=== PATIENT | male | born 1955 | race Caucasian/White ===

== ENCOUNTER 2018-01-05 07:32 | Day surgery (SDC) | payer OTHER ==
[~2018-01-05] VITALS: Ht 172.7 cm; Wt 87.0 kg
[~2018-01-05 07:32] MED LIST: ALBU8.5H8 INH; BISA5TAB5 PO; CYAN500L4 PO; DOLU50TA PO; ESCI10TA PO; ESZO2TAB22 PO; FAMC500T33 PO; GEMF600T3 PO; MULT-108 PO; OXYC10TA6 PO; PREG150C PO; PSYLLIUM PO; RILP25TA PO; SODIUM CHLORIDE NAS; TAMS-11 PO; VENL75TA PO
[2018-01-05] MEDS ORDERED: LACTATED RINGERS 1,000 ML IV SCH (08:02)
[2018-01-05 08:03] VITALS: BP 134/77
[2018-01-05] MEDS ORDERED: MIDAZOLAM 1 MG/ML, 2ML ONE (10:38)
[2018-01-05] MEDS ORDERED: FENTANYL PF 100 MCG/2ML ONE ×2 (10:38→12:29)
[2018-01-05] MEDS ORDERED: KETAMINE 10 MG/ML, 20ML ONE (10:54)
[2018-01-05] MEDS ORDERED: OXYcodone 5 MG/5 ML ORAL.SOL UDC PO PRN (11:00)
[2018-01-05] MEDS ORDERED: FENTANYL PF 100 MCG/2ML IV PRN (11:00)
[2018-01-05] MEDS ORDERED: HYDROcodone/APAP 7.5-325MG/15ML UDC PO PRN (11:00)
[2018-01-05] MEDS ORDERED: LABETALOL 5MG/ML, 20ML IV PRN (11:00)
[2018-01-05] MEDS ORDERED: ONDANSETRON 2MG/ML, 2ML IVPush PRN (11:00)
[2018-01-05] MEDS ORDERED: ACETAMINOPHEN 325 MG TABLET PO PRN (11:00)
[2018-01-05] MEDS ORDERED: PROMETHAZINE 25 MG/ML, 1ML IV PRN (11:00)
[2018-01-05] MEDS ORDERED: ACETAMINOPHEN 650 MG/20.3 ML UDC ONE (12:29)
[2018-01-05] MEDS ORDERED: OXYcodone 5 MG/5 ML ORAL.SOL UDC ONE (12:30)
[2018-01-05] MEDS ORDERED: PROPOFOL 10 MG/ML, 20ML ONE ×6 (13:27)
== END 2018-01-05 13:25 | disposition home or self-care (01) ==
LOC: OUT 07:32
PROVIDERS: ATTEND Internal Medicine Geriatric Medicine
DX: K85.90 Acute pancreatitis without necrosis or infection, unspecified (principal); K86.89 Other specified diseases of pancreas; F41.9 Anxiety disorder, unspecified; K21.9 Gastro-esophageal reflux disease without esophagitis; E78.5 Hyperlipidemia, unspecified; Z87.39 Personal history of other diseases of the musculoskeletal system and connective tissue; Z98.890 Other specified postprocedural states; Z88.1 Allergy status to other antibiotic agents; Z88.0 Allergy status to penicillin
CPT/HCPCS: 43242; 88172; 88173; 88177; 88305; 88307; J2250; J2704; J3010; J7120; 93005

== ENCOUNTER 2018-02-02 11:42 | Day surgery (SDC) | payer OTHER ==
[~2018-02-02] VITALS: Ht 172.7 cm; Wt 84.1 kg
[2018-02-02] MEDS ORDERED: LACTATED RINGERS 1,000 ML IV SCH (12:17)
[2018-02-02 12:43] VITALS: BP 115/77
[2018-02-02] MEDS ORDERED: FENTANYL PF 100 MCG/2ML ONE (14:22)
[2018-02-02] MEDS ORDERED: MIDAZOLAM 1 MG/ML, 2ML ONE (14:23)
[2018-02-02] MEDS ORDERED: DEXAMETHASONE 4 MG/ML, 1ML ONE (14:32)
[2018-02-02] MEDS ORDERED: ROCURONIUM 10 MG/ML,10ML ONE (14:32)
[2018-02-02] MEDS ORDERED: ONDANSETRON 2MG/ML, 2ML ONE (14:32)
[2018-02-02] MEDS ORDERED: PROPOFOL 10 MG/ML, 20ML ONE (14:32)
[2018-02-02] MEDS ORDERED: ALBUTEROL SULFATE 2.5 MG/3 ML NPPB PRN (15:00)
[2018-02-02] MEDS ORDERED: LABETALOL 5MG/ML, 20ML IV PRN (15:00)
[2018-02-02] MEDS ORDERED: FENTANYL PF 100 MCG/2ML IV PRN (15:00)
[2018-02-02] MEDS ORDERED: hydrALAzine 20 MG/ML, 1ML IV PRN (15:00)
[2018-02-02] MEDS ORDERED: ACETAMINOPHEN 325 MG TABLET PO PRN (15:00)
[2018-02-02] MEDS ORDERED: ONDANSETRON ODT 8 MG PO PRN (15:00)
[2018-02-02] MEDS ORDERED: PROMETHAZINE 25 MG/ML, 1ML IV PRN (15:00)
[2018-02-02] MEDS ORDERED: MORPHINE SULFATE 4 MG/ML, 1ML IVPush PRN (15:00)
== END 2018-02-02 16:55 ==
LOC: OUT 11:42
PROVIDERS: ATTEND Internal Medicine
DX: R59.1 Generalized enlarged lymph nodes (principal); D71 Functional disorders of polymorphonuclear neutrophils; K85.90 Acute pancreatitis without necrosis or infection, unspecified
CPT/HCPCS: 43242; 88172; 88173; 88177; 88305; 88307; J1100; J2250; J2405; J2704; J3010; J7120

== ENCOUNTER 2018-02-02 23:26 | Inpatient (IN) | payer OTHER ==
[~2018-02-02] VITALS: Ht 172.7 cm; Wt 76.8 kg
[2018-02-02] MEDS: POTASSIUM CHLORIDE 20 MEQ in LACTATED RINGERS 1,000 ML IV SCH (23:57)
[2018-02-03] MEDS ORDERED: morphine SULFATE 10 MG/ML, 1ML IVPush PRN
[2018-02-03] MEDS ORDERED: POLYETHYLENE GLYCOL 17 GM PACKET PO PRN
[2018-02-03] MEDS ORDERED: MORPHINE SULFATE 4 MG/ML, 1ML IVPush PRN
[2018-02-03] MEDS ORDERED: DIPHENHYDRAMINE 50 MG/ML, 1ML IVPush PRN
[2018-02-03] MEDS ORDERED: BISACODYL 10 MG SUPP PR PRN
[2018-02-03] MEDS ORDERED: SODIUM CHLORIDE FLUSH 10ML SYR IVF ONE
[2018-02-03] MEDS ORDERED: DOCUSATE 100 MG CAPSULE PO PRN
[2018-02-03] MEDS ORDERED: hydrALAzine 20 MG/ML, 1ML IVPush PRN
[2018-02-03] MEDS ORDERED: POTASSIUM CHLORIDE 20 MEQ in SODIUM CHLORIDE 0.45% 1,000 ML IV SCH
[2018-02-03] MEDS ORDERED: MORPHINE SULFATE 4 MG/ML, 1ML ONE (00:53)
[2018-02-03 01:20] VITALS: BP 132/83
[2018-02-03] MEDS ORDERED: HYDROmorphone 2 MG/ML, 1ML ONE ×7 (01:42→21:29)
[2018-02-03] MEDS: HYDROmorphone 1 MG/ML, 1ML IV PRN ×7 (01:45→21:31)
[2018-02-03 02:02] VITALS: BP 130/83
[2018-02-03 05:10] LABS: MEAN CORPUSCULAR HGB CONC 32.6 g/dL (33.2-36.2); MEAN CORPUSCULAR VOLUME 88.9 fL (81-97); MEAN PLATELET VOLUME 7.9 fL (7.4-10.4); PLATELET COUNT 354 x10^3/uL (130-400); RED BLOOD COUNT 4.22 x10^6/uL (4.38-5.82); RED CELL DISTRIBUTION WIDTH 16.3 % (9.4-14.8)
[2018-02-03 05:20] LABS: ALBUMIN 3.3 g/dL (3.4-5.0); ANION GAP 5 mmol/L (5-15); CALCIUM 8.9 mg/dL (8.5-10.1); CHLORIDE 108 mmol/L (98-107)
[2018-02-03 05:24] LABS: ALANINE AMINOTRANSFERASE 54 U/L (12-78); ALKALINE PHOSPHATASE 112 U/L (45-117); BILIRUBIN,TOTAL 0.5 mg/dL (0.2-1.0); CREATININE 1.25 mg/dL (0.7-1.3); TOTAL PROTEIN 7.6 g/dL (6.4-8.2)
[2018-02-03 05:51] LABS: BASOPHILS # (AUTO) 0.18 x10^3/uL (0-0.1); BASOPHILS % (AUTO) 1 % (0-1); EOSINOPHILS % (AUTO) 0 % (1-7); LYMPHOCYTES # (AUTO) 1.56 x10^3/uL (1-3.4); LYMPHOCYTES % (AUTO) 11 % (22-44); MD SCAN; MONOCYTES # (AUTO) 0.27 x10^3/uL (0.2-0.8); MONOCYTES % (AUTO) 2 % (2-9); NEUTROPHILS # (AUTO) 12.15 x10^3/uL (1.8-6.8); NEUTROPHILS % (AUTO) 86 % (42-75)
[2018-02-03] MEDS: POTASSIUM CHLORIDE 20 MEQ in LACTATED RINGERS 1,000 ML IV SCH (06:34)
[2018-02-03 07:20] VITALS: BP 131/84
[2018-02-03] MEDS: LACTATED RINGERS 1,000 ML IV SCH ×3 (11:36→21:35)
[2018-02-03] MEDS ORDERED: LORazepam 2 MG/ML, 1ML IVPush ONE (12:00)
[2018-02-03 13:46] VITALS: BP 119/78
[2018-02-03 20:19] VITALS: BP 106/66
[2018-02-04] MEDS ORDERED: HYDROmorphone 2 MG/ML, 1ML ONE ×5 (00:22→22:28)
[2018-02-04] MEDS: HYDROmorphone 1 MG/ML, 1ML IV PRN ×5 (00:23→22:30)
[2018-02-04 02:16] VITALS: BP 115/72
[2018-02-04] MEDS: LACTATED RINGERS 1,000 ML IV SCH ×3 (02:33→22:31)
[2018-02-04 04:43] LABS: BASOPHILS # (AUTO) 0.03 x10^3/uL (0-0.1); BASOPHILS % (AUTO) 0 % (0-1); EOSINOPHILS # (AUTO) 0.09 x10^3/uL (0-0.4); EOSINOPHILS % (AUTO) 1 % (1-7); LYMPHOCYTES % (AUTO) 17 % (22-44); MD NO; MEAN CORPUSCULAR HEMOGLOBIN 29.3 pg (27.5-34.5); MEAN CORPUSCULAR HGB CONC 32.9 g/dL (33.2-36.2); MEAN CORPUSCULAR VOLUME 89.1 fL (81-97); MONOCYTES # (AUTO) 0.68 x10^3/uL (0.2-0.8); MONOCYTES % (AUTO) 5 % (2-9); NEUTROPHILS # (AUTO) 10.26 x10^3/uL (1.8-6.8); NEUTROPHILS % (AUTO) 77 % (42-75); PLATELET COUNT 309 x10^3/uL (130-400); RED BLOOD COUNT 4.14 x10^6/uL (4.38-5.82); RED CELL DISTRIBUTION WIDTH 16.7 % (9.4-14.8)
[2018-02-04 04:47] LABS: ANION GAP 5 mmol/L (5-15); CHLORIDE 108 mmol/L (98-107)
[2018-02-04 04:48] LABS: CREATININE 1.05 mg/dL (0.7-1.3)
[2018-02-04 08:12] VITALS: BP 121/76
[2018-02-04] MEDS: ONDANSETRON 2MG/ML, 2ML IVPush PRN (18:02)
[2018-02-04 20:19] VITALS: BP 150/80
[2018-02-04] MEDS ORDERED: TEMAZEPAM 15 MG CAPSULE PO PRN (21:00)
[2018-02-05 01:22] VITALS: BP 151/79
[2018-02-05] MEDS: LACTATED RINGERS 1,000 ML IV SCH ×5 (03:14→23:25)
[2018-02-05] MEDS ORDERED: HYDROmorphone 2 MG/ML, 1ML ONE ×5 (03:16→19:56)
[2018-02-05] MEDS: HYDROmorphone 1 MG/ML, 1ML IV PRN ×5 (03:17→20:02)
[2018-02-05 07:20] VITALS: BP 121/71
[2018-02-05] MEDS ORDERED: CITALOPRAM 10 MG TABLET PO SCH (09:00)
[2018-02-05] MEDS: CITALOPRAM 20 MG TABLET PO SCH (10:02)
[2018-02-05] MEDS: VENLAFAXINE 75 MG CAP ER PO SCH (10:02)
[2018-02-05 10:03] LABS: BASOPHILS # (AUTO) 0.04 x10^3/uL (0-0.1); BASOPHILS % (AUTO) 0 % (0-1); EOSINOPHILS # (AUTO) 0.19 x10^3/uL (0-0.4); EOSINOPHILS % (AUTO) 2 % (1-7); LYMPHOCYTES # (AUTO) 1.96 x10^3/uL (1-3.4); LYMPHOCYTES % (AUTO) 16 % (22-44); MD NO; MEAN PLATELET VOLUME 7.8 fL (7.4-10.4); MONOCYTES # (AUTO) 0.92 x10^3/uL (0.2-0.8); MONOCYTES % (AUTO) 8 % (2-9); NEUTROPHILS # (AUTO) 9.07 x10^3/uL (1.8-6.8); NEUTROPHILS % (AUTO) 75 % (42-75); PLATELET COUNT 275 x10^3/uL (130-400); RED BLOOD COUNT 4.18 x10^6/uL (4.38-5.82); RED CELL DISTRIBUTION WIDTH 16.4 % (9.4-14.8)
[2018-02-05 10:16] LABS: ALANINE AMINOTRANSFERASE 38 U/L (12-78); ANION GAP 6 mmol/L (5-15); CALCIUM 8.8 mg/dL (8.5-10.1); CHLORIDE 106 mmol/L (98-107); CREATININE 1.05 mg/dL (0.7-1.3)
[2018-02-05 10:18] LABS: ALKALINE PHOSPHATASE 99 U/L (45-117); TOTAL PROTEIN 7.1 g/dL (6.4-8.2)
[2018-02-05 13:19] VITALS: BP 128/73
[2018-02-05] MEDS ORDERED: OXYcodone/APAP 5/325MG TABLET PO PRN (13:30)
[2018-02-05 19:23] VITALS: BP 131/82
[2018-02-05] MEDS: ONDANSETRON 2MG/ML, 2ML IVPush PRN (19:59)
[2018-02-06 02:08] VITALS: BP 115/71
[2018-02-06] MEDS: LACTATED RINGERS 1,000 ML IV SCH ×2 (04:33→09:37)
[2018-02-06 05:42] LABS: CHLORIDE 109 mmol/L (98-107)
[2018-02-06 05:48] LABS: BASOPHILS # (AUTO) 0.03 x10^3/uL (0-0.1); BASOPHILS % (AUTO) 0 % (0-1); EOSINOPHILS # (AUTO) 0.22 x10^3/uL (0-0.4); EOSINOPHILS % (AUTO) 2 % (1-7); LYMPHOCYTES # (AUTO) 1.62 x10^3/uL (1-3.4); LYMPHOCYTES % (AUTO) 17 % (22-44); MD NO; MEAN CORPUSCULAR HEMOGLOBIN 29.3 pg (27.5-34.5); MEAN CORPUSCULAR HGB CONC 33.3 g/dL (33.2-36.2); MEAN CORPUSCULAR VOLUME 87.9 fL (81-97); MONOCYTES # (AUTO) 0.74 x10^3/uL (0.2-0.8); MONOCYTES % (AUTO) 8 % (2-9); NEUTROPHILS # (AUTO) 6.92 x10^3/uL (1.8-6.8); NEUTROPHILS % (AUTO) 73 % (42-75); PLATELET COUNT 216 x10^3/uL (130-400); RED BLOOD COUNT 3.52 x10^6/uL (4.38-5.82); RED CELL DISTRIBUTION WIDTH 16.4 % (9.4-14.8)
[2018-02-06 05:50] LABS: ALANINE AMINOTRANSFERASE 27 U/L (12-78); ALBUMIN 2.5 g/dL (3.4-5.0); ALKALINE PHOSPHATASE 92 U/L (45-117); ANION GAP 8 mmol/L (5-15); CALCIUM 8.6 mg/dL (8.5-10.1); CREATININE 0.96 mg/dL (0.7-1.3); TOTAL PROTEIN 6.1 g/dL (6.4-8.2)
[2018-02-06 09:35] VITALS: BP 130/80
[2018-02-06] MEDS: VENLAFAXINE 75 MG CAP ER PO SCH (09:37)
[2018-02-06] MEDS: CITALOPRAM 20 MG TABLET PO SCH (09:37)
[2018-02-06] MEDS ORDERED: CITALOPRAM 20 MG TABLET PO SCH (13:00)
[2018-02-06] MEDS ORDERED: RILPIVIRINE HCL 25 MG HOMEMEDPO SCH (13:00)
[2018-02-06] MEDS ORDERED: MULTIVITAMINS/MINERALS TABLET PO SCH (13:00)
[2018-02-06] MEDS ORDERED: TEMPLATE NON-FORMULARY MED. (Oxycodone Hcl** 10 MG) PO SCH (13:00)
[2018-02-06] MEDS ORDERED: TAMSULOSIN 0.4 MG CAP.ER.24H PO SCH (13:00)
[2018-02-06] MEDS ORDERED: VENLAFAXINE 75MG TABLET PO SCH (13:00)
[2018-02-06] MEDS ORDERED: DOLUTEGRAVIR 50MG TAB PO SCH (13:00)
[2018-02-06] MEDS ORDERED: CYANOCOBALAMIN 1,000 MCG TABLET PO SCH (13:00)
[2018-02-06 14:30] VITALS: BP 130/78
[2018-02-06 16:25] VITALS: BP 129/77
[2018-02-06] MEDS ORDERED: GEMFIBROZIL 600 MG TABLET PO SCH (21:00)
[2018-02-06] MEDS ORDERED: FAMCICLOVIR 500 MG TABLET PO SCH (21:00)
[2018-02-06] MEDS ORDERED: ZOLPIDEM 5MG TABLET PO PRN (21:00)
[2018-02-06] MEDS ORDERED: PREGABALIN 150 MG CAPSULE PO SCH (21:00)
== END 2018-02-06 16:45 | disposition home or self-care (01) | DRG 394 ==
LOC: ED 23:53 → EDIP 23:55 → 4NOR 02-03 01:15
PROVIDERS: ADMIT Hospitalist; ATTEND Hospitalist
DX: K91.89 Other postprocedural complications and disorders of digestive system (principal); E44.1 Mild protein-calorie malnutrition; K86.1 Other chronic pancreatitis; D64.9 Anemia, unspecified; F43.10 Post-traumatic stress disorder, unspecified; J44.9 Chronic obstructive pulmonary disease, unspecified; K86.9 Disease of pancreas, unspecified; K21.9 Gastro-esophageal reflux disease without esophagitis; Z21 Asymptomatic human immunodeficiency virus [HIV] infection status; Z79.899 Other long term (current) drug therapy; Z80.0 Family history of malignant neoplasm of digestive organs; Z82.49 Family history of ischemic heart disease and other diseases of the circulatory system; Z87.11 Personal history of peptic ulcer disease; Z87.891 Personal history of nicotine dependence; Y82.8 Other medical devices associated with adverse incidents; Y83.8 Other surgical procedures as the cause of abnormal reaction of the patient, or of later complication, without mention of misadventure at the time of the procedure
CPT/HCPCS: 36415; 80048; 80053; 83690; 85025; 96374; J1170; J2405; J3480; J1200; J2060; J7120

== ENCOUNTER 2020-05-29 23:55 | Emergency (ER) | payer OTHER ==
[~2020-05-29] VITALS: Ht 172.7 cm; Wt 81.8 kg
[~2020-05-29 23:55] MED LIST changes: -FAMC500T33 PO; +FAMC500T4 PO; -GEMF600T3 PO; +GEMF600T8 PO
--- NOTE | 2020-05-30 00:05 | NUR ---
Pt bib [facility] with c/o LBP. Pt states this is chronic but his home meds (oxycodone and ibuprofen) has not been helping. Pain radiating into L leg/knee. CMS intact. Pt moving all extremities with no difficulty. Pt denies any new injury. States he is supposed to have back surgery possibly next month. ERP in to eval. PT assisted with gown and monitors in place. Call light in reach.
[2020-05-30] MEDS ORDERED: DIAZEPAM 5 MG/ML, 2ML ONE (00:09)
[2020-05-30] MEDS ORDERED: ACETAMINOPHEN 500 MG TABLET ONE (00:10)
[2020-05-30] MEDS ORDERED: LIDODERM 5% PATCH TD ONE ×2 (00:10→00:30)
[2020-05-30] MEDS ORDERED: KETOROLAC 30 MG/1 ML ONE (00:10)
[2020-05-30 00:26] LABS: BASOPHILS # (AUTO) 0.03 x10^3/uL (0-0.1); BASOPHILS % (AUTO) 0 % (0-1); EOSINOPHILS # (AUTO) 0.16 x10^3/uL (0-0.4); EOSINOPHILS % (AUTO) 2 % (1-7); LYMPHOCYTES # (AUTO) 2.75 x10^3/uL (1-3.4); LYMPHOCYTES % (AUTO) 36 % (22-44); MD NO; MEAN CORPUSCULAR HEMOGLOBIN 30.7 pg (27.5-34.5); MEAN CORPUSCULAR HGB CONC 33.2 g/dL (33.2-36.2); MEAN PLATELET VOLUME 8.1 fL (7.4-10.4); MONOCYTES # (AUTO) 0.37 x10^3/uL (0.2-0.8); MONOCYTES % (AUTO) 5 % (2-9); NEUTROPHILS # (AUTO) 4.27 x10^3/uL (1.8-6.8); NEUTROPHILS % (AUTO) 56 % (42-75); PLATELET COUNT 261 x10^3/uL (130-400); RED BLOOD COUNT 5.25 x10^6/uL (4.38-5.82); RED CELL DISTRIBUTION WIDTH 13.6 % (9.4-14.8)
[2020-05-30] MEDS ORDERED: ACETAMINOPHEN 500 MG TABLET PO ONE (00:30)
[2020-05-30] MEDS ORDERED: DIAZEPAM 5 MG/ML, 2ML IVPush ONE (00:30)
[2020-05-30] MEDS ORDERED: KETOROLAC 30 MG/1 ML IVPush ONE (00:30)
--- NOTE | 2020-05-30 00:30 | NUR ---
IV access obtained. Pt medicated per NOV. VSS. Call light in reach. Pillow placed under knees for comfort. Lights dimmed. Monitoring in place.
[2020-05-30 00:32] LABS: ALBUMIN 4.4 g/dL (3.4-5.0); ANION GAP 7 mmol/L (5-15); CALCIUM 10.6 mg/dL (8.5-10.1); CHLORIDE 111 mmol/L (98-107); CREATININE 1.13 mg/dL (0.7-1.3)
--- NOTE | 2020-05-30 00:55 | NUR ---
Pt states he is feeling better at this time. VSS. Pt does c/o mild nausea. ERP notified and order for Zofran received. ERP to recheck pt.
[2020-05-30] MEDS ORDERED: ONDANSETRON 2MG/ML, 2ML ONE (00:57)
[2020-05-30] MEDS ORDERED: ONDANSETRON 2MG/ML, 2ML IVPush ONE (01:00)
[2020-05-30 01:25] VITALS: BP 124/78
== END 2020-05-30 01:28 | disposition home or self-care (01) ==
LOC: ED 05-30 01:15
DX: S39.012A Strain of muscle, fascia and tendon of lower back, initial encounter (principal); I10 Essential (primary) hypertension; J44.9 Chronic obstructive pulmonary disease, unspecified; Z21 Asymptomatic human immunodeficiency virus [HIV] infection status; X58.XXXA Exposure to other specified factors, initial encounter; Y93.89 Activity, other specified; Y92.89 Other specified places as the place of occurrence of the external cause; Y99.8 Other external cause status
CPT/HCPCS: 36415; 80048; 82040; 85025; 96374; 96375; 99284; J1885; J2405; J3360

== ENCOUNTER → 2020-06-25 | Outpatient (CLI) | payer OTHER ==
[~2020-06-25] MED LIST changes: +ESCI20TA PO; +HYDR-2995 PO; +OXYC5CAP2 PO; +TIZA4TAB2 PO
[2020-06-25 15:36] LABS: PROTHROMBIN TIME 10.6 Seconds (9.6-11.5)
[2020-06-25 15:39] LABS: CHLORIDE 107 mmol/L (98-107)
[2020-06-25 15:44] LABS: ALANINE AMINOTRANSFERASE 24 U/L (12-78); ALBUMIN 3.9 g/dL (3.4-5.0); ALKALINE PHOSPHATASE 57 U/L (45-117); ANION GAP 4 mmol/L (5-15); BILIRUBIN,TOTAL 0.5 mg/dL (0.2-1.0); CALCIUM 10.4 mg/dL (8.5-10.1); CREATININE 1.38 mg/dL (0.7-1.3); TOTAL PROTEIN 7.4 g/dL (6.4-8.2)
[2020-06-25 15:45] LABS: BASOPHILS % (AUTO) 1 % (0-1); EOSINOPHILS % (AUTO) 2 % (1-7); LYMPHOCYTES % (AUTO) 31 % (22-44); MEAN CORPUSCULAR HEMOGLOBIN 30.9 pg (27.5-34.5); MEAN CORPUSCULAR HGB CONC 33.6 g/dL (33.2-36.2); MEAN PLATELET VOLUME 8.5 fL (7.4-10.4); MONOCYTES % (AUTO) 8 % (2-9); NEUTROPHILS % (AUTO) 60 % (42-75); PLATELET COUNT 282 x10^3/uL (130-400); RED CELL DISTRIBUTION WIDTH 14.2 % (9.4-14.8)
[2020-06-25 15:47] LABS: MD NO
[2020-06-25 16:24] LABS: MICROSCOPIC INDICATED
== END | disposition home or self-care (01) ==
LOC: STAR 13:43
PROVIDERS: ATTEND Neurological Surgery
DX: Z01.812 Encounter for preprocedural laboratory examination (principal); Z01.810 Encounter for preprocedural cardiovascular examination; Z01.811 Encounter for preprocedural respiratory examination; R79.1 Abnormal coagulation profile; M48.061 Spinal stenosis, lumbar region without neurogenic claudication; M54.16 Radiculopathy, lumbar region; R94.31 Abnormal electrocardiogram [ECG] [EKG]; R82.90 Unspecified abnormal findings in urine; Z20.828 Contact with and (suspected) exposure to other viral communicable diseases
CPT/HCPCS: 36415; 71046; 80053; 81001; 85025; 85610; 85730; 87086; 87635; 93005

== ENCOUNTER 2020-06-29 03:44 | Emergency (ER) | payer OTHER ==
[~2020-06-29] VITALS: Ht 172.7 cm; Wt 80.6 kg
[2020-06-29 03:46] VITALS: BP 162/111
[2020-06-29] MEDS ORDERED: SODIUM CHLORIDE FLUSH 10ML SYR IVF ONE (04:00)
[2020-06-29] MEDS ORDERED: HYDROmorphone 2 MG/ML, 1ML IVPush PRN (04:00)
[2020-06-29] MEDS ORDERED: DIAZEPAM 5 MG/ML, 2ML IVPush ONE (04:00)
[2020-06-29] MEDS ORDERED: HYDROmorphone 2 MG/ML, 1ML ONE (04:18)
[2020-06-29] MEDS ORDERED: DIAZEPAM 5 MG/ML, 2ML ONE (04:18)
== END 2020-06-29 05:22 | disposition home or self-care (01) ==
LOC: ED 05:16
DX: S39.012A Strain of muscle, fascia and tendon of lower back, initial encounter (principal); I10 Essential (primary) hypertension; J44.9 Chronic obstructive pulmonary disease, unspecified; F17.210 Nicotine dependence, cigarettes, uncomplicated; X58.XXXA Exposure to other specified factors, initial encounter; Y93.89 Activity, other specified; Y92.89 Other specified places as the place of occurrence of the external cause; Y99.8 Other external cause status
CPT/HCPCS: 96374; 96375; 99284; 99406; J1170; J3360

== ENCOUNTER 2020-07-09 14:01 | Emergency (ER) | payer OTHER ==
[~2020-07-09] VITALS: Ht 170.2 cm; Wt 76.0 kg
--- NOTE | 2020-07-09 15:09 | NUR ---
PT TO ROOM AT THIS TIME.
[2020-07-09 15:51] LABS: BASOPHILS % (AUTO) 1 % (0-1); EOSINOPHILS % (AUTO) 1 % (1-7); LYMPHOCYTES % (AUTO) 15 % (22-44); MEAN CORPUSCULAR HEMOGLOBIN 30.2 pg (27.5-34.5); MEAN CORPUSCULAR HGB CONC 33.7 g/dL (33.2-36.2); MEAN PLATELET VOLUME 7.9 fL (7.4-10.4); MONOCYTES % (AUTO) 5 % (2-9); NEUTROPHILS % (AUTO) 78 % (42-75); PLATELET COUNT 410 x10^3/uL (130-400); RED BLOOD COUNT 3.81 x10^6/uL (4.38-5.82); RED CELL DISTRIBUTION WIDTH 13.9 % (9.4-14.8)
[2020-07-09 15:58] LABS: ANION GAP 6 mmol/L (5-15); CHLORIDE 106 mmol/L (98-107)
[2020-07-09 16:00] LABS: CREATININE 1.07 mg/dL (0.7-1.3)
[2020-07-09 16:03] LABS: MD NO
[2020-07-09] MEDS ORDERED: HYDROcodone/APAP 5/325 TABLET ONE (16:52)
[2020-07-09] MEDS ORDERED: HYDROcodone/APAP 5/325 TABLET PO ONE (17:00)
[2020-07-09 17:06] VITALS: BP 106/57
--- NOTE | 2020-07-09 17:08 | NUR ---
PT ATTEMPTING TO GET OUT OF BED ON HIS OWN, STATES HE NEEDS TO USE THE RESTROOM. URINE SAMPLE PROCEDURE EXPLAINED. URINE SAMPLE COLLECTED AND SENT. PT INCONTINENT OF SMALL AMT LOOSE STOOL. DISPOSABLE UNDERWEAR PROVIDED. ASSISTED BACK TO BED. MEDICATED PER NOV. DENIES ANY FURTHER NEEDS OR CONCERNS AT THIS TIME, CALL LIGHT IN REACH.
[2020-07-09 17:14] LABS: MICROSCOPIC NOT IND
--- NOTE | 2020-07-09 17:17 | NUR ---
PT UPDATED ON PLAN OF CARE. DENIES ANY FURTHER NEEDS OR CONCERNS, CALL LIGHT IN REACH.
== END 2020-07-09 17:45 | disposition home or self-care (01) ==
LOC: ED 16:51
DX: M54.5 Low back pain (principal); I10 Essential (primary) hypertension; J44.9 Chronic obstructive pulmonary disease, unspecified; F17.200 Nicotine dependence, unspecified, uncomplicated; Z21 Asymptomatic human immunodeficiency virus [HIV] infection status
CPT/HCPCS: 36415; 80048; 81003; 82040; 85025; 99283

== ENCOUNTER 2020-07-19 14:54 | Emergency (ER) | payer OTHER ==
[~2020-07-19] VITALS: Ht 172.7 cm; Wt 77.0 kg
--- NOTE | 2020-07-19 16:00 | NUR ---
pt in bed, no distress,
[2020-07-19] MEDS ORDERED: OXYcodone/APAP 10/325MG TABLET ONE (17:16)
[2020-07-19] MEDS ORDERED: OXYcodone/APAP 10/325MG TABLET PO ONE (17:30)
[2020-07-19 17:52] LABS: ANION GAP 6 mmol/L (5-15); C-REACTIVE PROTEIN, QUANT 0.27 mg/dL (0.02-0.49); CALCIUM 9.8 mg/dL (8.5-10.1); CHLORIDE 112 mmol/L (98-107); CREATININE 1.19 mg/dL (0.7-1.3)
[2020-07-19 17:55] LABS: BASOPHILS % (AUTO) 1 % (0-1); EOSINOPHILS % (AUTO) 0 % (1-7); LYMPHOCYTES % (AUTO) 30 % (22-44); MEAN CORPUSCULAR HEMOGLOBIN 30.2 pg (27.5-34.5); MEAN PLATELET VOLUME 7.5 fL (7.4-10.4); MONOCYTES % (AUTO) 8 % (2-9); NEUTROPHILS % (AUTO) 61 % (42-75); PLATELET COUNT 443 x10^3/uL (130-400); RED BLOOD COUNT 4.07 x10^6/uL (4.38-5.82); RED CELL DISTRIBUTION WIDTH 14.3 % (9.4-14.8)
[2020-07-19 17:57] LABS: MD NO
--- NOTE | 2020-07-19 18:36 | NUR ---
TASK RN: Patient given discharge instructions and they have confirmed that they understand the instructions. Patient ambulatory with steady gait. NAD, DENIES ADDITIONAL QUESTIONS OR NEEDS AT THIS TIME, NO PERSONAL BELONGINGS NOTED IN ROOM AFTER DC. PT STATES HE WILL FOLLOW UP WITH NEUROSURGERY.
[2020-07-19 18:38] VITALS: BP 149/88
== END 2020-07-19 18:40 | disposition home or self-care (01) ==
LOC: ED 18:13
DX: G89.29 Other chronic pain (principal); M54.5 Low back pain; R06.02 Shortness of breath; I10 Essential (primary) hypertension; J44.9 Chronic obstructive pulmonary disease, unspecified
CPT/HCPCS: 36415; 71045; 80048; 85025; 86140; 99284